=== PATIENT | female | born 1935 | race Caucasian/White ===

== ENCOUNTER 2017-10-11 10:04 | Emergency (ER) | payer OTHER ==
[~2017-10-11] VITALS: Ht 160 cm; Wt 53.5 kg
[2017-10-11 12:08] LABS: APPEARANCE CLOUDY ((CLEAR)); BILIRUBIN NEGATIVE; BLOOD SMALL; COLOR YELLOW ((YELLOW)); GLUCOSE (STRIP) NEGATIVE; KETONES 5; LEUKOCYTES LARGE; NITRITE POSITIVE; PROTEIN (STRIP) 30; SPECIFIC GRAVITY 1.006 (1.000-1.030); UROBILINOGEN 0.2 MG/DL (0.2-1.0)
[2017-10-11 12:21] LABS: BACTERIA 1+ /HPF; EPITHELIAL CELLS RARE /HPF; MUCUS NONE SEEN /LPF; RED BLOOD CELLS 0-5 /HPF (0-5); UCUL ADDED? YES; WHITE BLOOD CELLS TNTC /HPF (0-5)
[2017-10-11 12:59] LABS: HEMATOCRIT 37.3 % (36.0-46.0); HEMOGLOBIN 13.4 G/DL (11.9-15.5); MCH 29.1 PG (29.0-34.0); MCHC 35.9 G/DL (30.0-36.0); MCV 81.1 FL (83-99); PLATELET COUNT 317 K/uL (156-360); RBC DIS.WIDTH-CV 12.6 % (11.8-14.6); RBC DIS.WIDTH-SD 37.2 % (39-53); WHITE BLOOD COUNT 11.3 K/uL (4.1-10.2)
[2017-10-11 13:10] LABS: ALBUMIN 4.2 g/dL (3.2-4.8); CHLORIDE 90 mEq/L (99-109); POTASSIUM 3.5 mEq/L (3.7-5.4); SODIUM 126 mEq/L (136-147)
[2017-10-11 13:12] LABS: GLUCOSE 136 mg/dL (70-99); TOTAL PROTEIN 8.2 g/dL (6.4-8.3)
[2017-10-11 13:14] LABS: TOTAL BILIRUBIN 0.5 mg/dL (0.0-1.0)
[2017-10-11 13:16] LABS: ALKALINE PHOSPHATASE 172 IU/L (3-129); CREATININE 0.8 mg/dL (0.6-1.3); GFR ESTIMATE (CALCULATED) > 59 mL/min/
[2017-10-11 13:17] LABS: UREA NITROGEN (BUN) 11 mg/dL (9-23)
[2017-10-11 13:18] LABS: AST (GOT) 18 IU/L (2-34)
[2017-10-11 13:19] LABS: ALT (GPT) 12 IU/L (3-49)
[2017-10-11] MEDS ORDERED: KEFLEX500 MG PO (15:17)
[2017-10-11] MEDS ORDERED: NAPROSYN500 MG PO (15:25)
[2017-10-11] MEDS ORDERED: LORTAB 5-325 M1 EACH PO (15:25)
[2017-10-11 15:34] VITALS: BP 184/87
== END 2017-10-11 15:35 | disposition home or self-care (01) ==
LOC: EME 10:04
PROVIDERS: Nurse Practitioner Family
DX: N39.0 Urinary tract infection, site not specified (principal); E87.1 Hypo-osmolality and hyponatremia; N20.0 Calculus of kidney; E11.9 Type 2 diabetes mellitus without complications; E78.5 Hyperlipidemia, unspecified; F32.9 Major depressive disorder, single episode, unspecified; F41.9 Anxiety disorder, unspecified; I10 Essential (primary) hypertension; Z98.1 Arthrodesis status
CPT/HCPCS: 72100; 72220; 74176; 80053; 81003; 85027; 87077; 87086; 87186; 99281; 99284; J0696

== ENCOUNTER 2017-10-14 12:38 | Emergency (ER) | payer OTHER, MEDICARE ==
[~2017-10-14] VITALS: Ht 157.5 cm; Wt 55.4 kg
[~2017-10-14 12:38] MED LIST: KEFLEX500 MG PO; LORTAB 5-325 M1 EACH PO; NAPROSYN500 MG PO
[2017-10-14 14:22] LABS: APPEARANCE CLEAR ((CLEAR)); BILIRUBIN NEGATIVE; BLOOD SMALL; COLOR YELLOW ((YELLOW)); GLUCOSE (STRIP) NEGATIVE; KETONES NEGATIVE; LEUKOCYTES TRACE; NITRITE NEGATIVE; PROTEIN (STRIP) NEGATIVE; SPECIFIC GRAVITY 1.003 (1.000-1.030); UROBILINOGEN 0.2 MG/DL (0.2-1.0)
[2017-10-14 14:23] LABS: MCH 28.9 PG (29.0-34.0); MCHC 35.1 G/DL (30.0-36.0); MCV 82.2 FL (83-99); PLATELET COUNT 381 K/uL (156-360); RBC DIS.WIDTH-CV 12.9 % (11.8-14.6); RBC DIS.WIDTH-SD 38.8 % (39-53); WHITE BLOOD COUNT 10.4 K/uL (4.1-10.2)
[2017-10-14 14:28] LABS: BACTERIA RARE /HPF; EPITHELIAL CELLS RARE /HPF; MUCUS NONE SEEN /LPF; RED BLOOD CELLS 0-5 /HPF (0-5); UCUL ADDED? YES
[2017-10-14 14:32] LABS: ALBUMIN 4.4 g/dL (3.2-4.8); CHLORIDE 88 mEq/L (99-109); POTASSIUM 4.2 mEq/L (3.7-5.4); SODIUM 127 mEq/L (136-147)
[2017-10-14 14:35] LABS: GLUCOSE 127 mg/dL (70-99); TOTAL PROTEIN 8.5 g/dL (6.4-8.3)
[2017-10-14 14:37] LABS: TOTAL BILIRUBIN 0.5 mg/dL (0.0-1.0)
[2017-10-14 14:38] LABS: ALKALINE PHOSPHATASE 171 IU/L (3-129); CREATININE 0.8 mg/dL (0.6-1.3); GFR ESTIMATE (CALCULATED) > 59 mL/min/
[2017-10-14 14:39] LABS: UREA NITROGEN (BUN) 12 mg/dL (9-23)
[2017-10-14 14:40] LABS: AST (GOT) 20 IU/L (2-34)
[2017-10-14 14:41] LABS: ALT (GPT) 14 IU/L (3-49)
[2017-10-14] MEDS ORDERED: PERCOCET 5/31 TABLET PO (18:11)
[2017-10-14] MEDS ORDERED: VALIUM5 MG PO (18:11)
[2017-10-14 18:36] VITALS: BP 175/96
== END 2017-10-14 18:38 | disposition home or self-care (01) ==
LOC: EME 12:38
PROVIDERS: Emergency Medicine
DX: M48.56XA Collapsed vertebra, not elsewhere classified, lumbar region, initial encounter for fracture (principal); N39.0 Urinary tract infection, site not specified; E11.9 Type 2 diabetes mellitus without complications; E78.5 Hyperlipidemia, unspecified; F32.9 Major depressive disorder, single episode, unspecified; I10 Essential (primary) hypertension; F41.9 Anxiety disorder, unspecified; H35.30 Unspecified macular degeneration; Z88.2 Allergy status to sulfonamides; Z88.5 Allergy status to narcotic agent; Z80.1 Family history of malignant neoplasm of trachea, bronchus and lung; Z88.8 Allergy status to other drugs, medicaments and biological substances
CPT/HCPCS: 72128; 72131; 74176; 80053; 81003; 85027; 87086; 99281; 99285; J2405; J3010; J7030